=== PATIENT | male | born 1955 | race Caucasian/White ===

== ENCOUNTER 2018-06-26 13:52 | Observation (INO) | payer OTHER ==
[~2018-06-26] VITALS: Ht 172.7 cm; Wt 90.7 kg
[~2018-06-26 13:52] MED LIST: ASPI81CH PO; ATOR40TA PO; Aciphex20 MG PO; Calcium Ascorb500 MG; FENO160 PO; GABA300; HYDACE5 PO; HYDACE5325 PO; HYDMOR2 PO; LANS30EC; LEVFLO500 PO; MULVITA PO; NATTOKINASE; NATTOKINASE PO; NIAC500 PO; OXYACE7.5T; OXYC20ER; RABE20 PO; SERT100 PO; TAMS.4ER; TUMERERIC; TURMERIC500 M2 PO; VITAMIN B122500 MCG PO; VITAMIN D32000 UNI1 PO; VITAMIN D34000 UNIT PO; VITAMINS; XARELTO; ZOLOFT; [UNRECOGNIZED DRUG - REMARK] PO
[2018-07-01 17:18] LABS: Hematocrit 38.9 % (37.0-53.0); Hemoglobin 13.4 g/dL (13.5-17.5)
[2018-07-01] MEDS ORDERED: Percocet 5-3251 EACH PO (17:44)
== END 2018-07-01 18:15 | disposition home or self-care (01) ==
LOC: SURS 07-01 06:16 → PRE IP 07-01 06:16 → SURS 07-01 06:17 → PRE IP 07-01 07:30 → SURS 07-01 11:10
PROVIDERS: Podiatrist Foot & Ankle Surgery
PROC: 0L8W0ZZ Division of Left Foot Tendon, Open Approach (ICD-10-PCS; 2018-07-01)
PROC: 0SRG0JZ Replacement of Left Ankle Joint with Synthetic Substitute, Open Approach (ICD-10-PCS; principal; 2018-07-01 07:30)
DX: M19.072 Primary osteoarthritis, left ankle and foot (principal); M93.272 Osteochondritis dissecans, left ankle and joints of left foot; E78.00 Pure hypercholesterolemia, unspecified; G43.909 Migraine, unspecified, not intractable, without status migrainosus; N40.0 Benign prostatic hyperplasia without lower urinary tract symptoms; K58.9 Irritable bowel syndrome, unspecified; F32.9 Major depressive disorder, single episode, unspecified; K21.9 Gastro-esophageal reflux disease without esophagitis; Z86.718 Personal history of other venous thrombosis and embolism; Z91.041 Radiographic dye allergy status; Z88.5 Allergy status to narcotic agent; Z79.899 Other long term (current) drug therapy
CPT/HCPCS: 36415; 73600; 85014; 85018; 86850; 86900; 86901; 97116; 97161; C1776; G8978; G8979; G8980; J0171; J0690; J0735; J1100; J1885; J2250; J2405; J2795; J3010; J7120

== ENCOUNTER 2018-09-09 07:10 | Day surgery (SDC) | payer OTHER ==
[~2018-09-09] VITALS: Ht 175.3 cm; Wt 88.3 kg
[~2018-09-09 07:10] MED LIST changes: +Percocet 5-3251 EACH PO
[2018-09-09] MEDS ORDERED: FENOFIBRATE40 MG PO (07:44)
[2018-09-09] MEDS ORDERED: TAMS.4ER PO (07:45)
== END 2018-09-09 09:14 | disposition home or self-care (01) ==
LOC: ORSCSDS 07:10
PROVIDERS: Internal Medicine Gastroenterology
PROC: 0DBM8ZX Excision of Descending Colon, Via Natural or Artificial Opening Endoscopic, Diagnostic (ICD-10-PCS; principal; 2018-09-09 08:30)
DX: Z12.11 Encounter for screening for malignant neoplasm of colon (principal); D12.4 Benign neoplasm of descending colon; K57.30 Diverticulosis of large intestine without perforation or abscess without bleeding; K64.8 Other hemorrhoids; K58.9 Irritable bowel syndrome, unspecified; E78.00 Pure hypercholesterolemia, unspecified; K21.0 Gastro-esophageal reflux disease with esophagitis; I82.629 Acute embolism and thrombosis of deep veins of unspecified upper extremity; F32.9 Major depressive disorder, single episode, unspecified; Z79.899 Other long term (current) drug therapy
CPT/HCPCS: 88305; J0330; J1980; J2405; J7120

== ENCOUNTER 2019-04-25 21:14 | Emergency (ER) | payer MEDICARE ==
[~2019-04-25] VITALS: Ht 175.3 cm; Wt 87.1 kg
[~2019-04-25 21:14] MED LIST changes: +FENOFIBRATE40 MG PO; +TAMS.4ER PO
== END 2019-04-25 23:33 | disposition home or self-care (01) ==
LOC: ER 21:14
DX: S61.210A Laceration without foreign body of right index finger without damage to nail, initial encounter (principal); W45.8XXA Other foreign body or object entering through skin, initial encounter; Z88.5 Allergy status to narcotic agent; Z88.8 Allergy status to other drugs, medicaments and biological substances; Z79.899 Other long term (current) drug therapy
CPT/HCPCS: 12001; 90471; 90714; 99282-25

== ENCOUNTER 2020-04-06 12:16 | Emergency (ER) | payer MEDICARE ==
[~2020-04-06] VITALS: Ht 175.3 cm; Wt 86.2 kg
[2020-04-06 12:51] LABS: BASOPHILS ABSOLUTE AUTO 0.05 K/mm3 (0.00-0.23); BASOPHILS PERCENT AUTO 1 % (0-2); EOSINOPHILS ABSOLUTE AUTO 0.16 K/mm3 (0.00-0.68); EOSINOPHILS PERCENT AUTO 3 % (0-6); Hematocrit 43.4 % (37.0-53.0); Hemoglobin 15.1 g/dL (13.5-17.5); IMMATURE GRAN ABSOLUTE AUTO 0.01 K/mm3 (0.00-0.10); IMMATURE GRAN PERCENT AUTO 0 % (0-1); LYMPHOCYTES ABSOLUTE AUTO 1.96 K/mm3 (0.84-5.20); LYMPHOCYTES PERCENT AUTO 33 % (21-46); MONOCYTES ABSOLUTE AUTO 0.63 K/mm3 (0.16-1.47); MONOCYTES PERCENT AUTO 11 % (4-13); Mean Corpuscular HGB 32.6 pg (26.0-34.0); Mean Corpuscular HGB Conc 34.8 g/dL (31.5-36.5); Mean Corpuscular Volume 94 fL (80-100); Mean Platelet Volume 10.6 fL (9.1-12.4); NEUTROPHILS PERCENT AUTO 52 % (41-73); Platelet Count 172 K/mm3 (150-400); RDW Coefficient Variation 11.9 % (11.7-14.2); RDW Standard Deviation 40.9 fL (35.1-46.3); Red Blood Cell Count 4.63 M/mm3 (4.30-5.90); White Blood Cell Count 5.91 K/mm3 (4.00-11.30)
[2020-04-06 13:14] LABS: Alanine Aminotransfer (ALT/SGP 24 U/L (12-78); Albumin, Blood 3.8 g/dL (3.4-5.0); Albumin/Globulin Ratio 1.2 (0.8-1.8); Alk Phos 69 U/L (50-136); Anion Gap 5 mmol/L (6-16); Aspartate Aminotrans (AST/SGOT 17 U/L (12-37); Bilirubin, Total 0.5 mg/dL (0.1-1.0); Blood Urea Nitrogen 12 mg/dL (8-24); Bun/Creatinine Ratio 14.8 (12.0-20.0); CO2, Blood 26 mmol/L (21-32); Calcium, Blood 8.8 mg/dL (8.5-10.1); Chloride, Blood 108 mmol/L (98-108); Creatinine, Blood 0.81 mg/dL (0.60-1.20); Globulin, Blood 3.2 g/dL (2.2-4.0); Glomerular Filtration Rate >60 (60-); Glucose, Blood 95 mg/dL (70-99); Potassium, Blood 4.1 mmol/L (3.5-5.5); Sodium, Blood 139 mmol/L (136-145); Troponin I <0.015 ng/mL (0.000-0.040)
== END 2020-04-06 18:28 | disposition home or self-care (01) ==
LOC: ER 12:16
PROVIDERS: Physician Assistant
DX: R07.9 Chest pain, unspecified (principal); Z88.5 Allergy status to narcotic agent; Z91.09 Other allergy status, other than to drugs and biological substances; Z79.899 Other long term (current) drug therapy; E78.5 Hyperlipidemia, unspecified; J44.9 Chronic obstructive pulmonary disease, unspecified; Z86.718 Personal history of other venous thrombosis and embolism; F32.9 Major depressive disorder, single episode, unspecified; N40.0 Benign prostatic hyperplasia without lower urinary tract symptoms; Z87.891 Personal history of nicotine dependence
CPT/HCPCS: 36415; 71046; 80053; 84484; 85025; 93005; 93010; 99285-25

== ENCOUNTER 2021-01-15 15:42 | Inpatient (IN) | payer MEDICARE ==
[~2021-01-15] VITALS: Ht 177.8 cm; Wt 82.9 kg
--- NOTE | 2021-01-15 19:20 | NUR ---
direct admit, for diverticulitus, a+o, no skin issues noted on admit, at side and assisting during admit, call light in reach, medicated as prescribed, call light in reach, bed in low position, abx infusing with no s/sx of infection or infiltration, bed in low position, bsr shared with noc nurse and pt
--- NOTE | 2021-01-15 19:30 | NUR ---
ASSUMPTION OF CARE. AOX3, REPORTS PAIN IN LOWER QUADRANTS TO SIDES, RISING AT 6/10 AT THIS TIME. MILD NAUSEA. STATES THE FENTANYL ONLY LAST 30 MINUTES THEN STARTS TO WEAR OFF. DISCUSSED SPEAKING TO DOCTOR AND GETTING HIS PAIN MEDICATION CHANGED. ABLE TO USE BATHROOM INDEPENDENTLY. NO N/T. IVF INFUSING WELL. ICE CHIPS AT BED SIDE. WILL ALSO GIVE HEATING PAD FOR PAIN. CALL LIGHT IS IN REACH. NO OTHER NEEDS NOTED AT THIS TIME.
[2021-01-16 05:14] LABS: BASOPHILS ABSOLUTE AUTO 0.02 K/mm3 (0.00-0.23); BASOPHILS PERCENT AUTO 0 % (0-2); EOSINOPHILS ABSOLUTE AUTO 0.17 K/mm3 (0.00-0.68); EOSINOPHILS PERCENT AUTO 2 % (0-6); Hematocrit 40.5 % (37.0-53.0); Hemoglobin 14.1 g/dL (13.5-17.5); IMMATURE GRAN ABSOLUTE AUTO 0.02 K/mm3 (0.00-0.10); IMMATURE GRAN PERCENT AUTO 0 % (0-1); LYMPHOCYTES ABSOLUTE AUTO 1.78 K/mm3 (0.84-5.20); LYMPHOCYTES PERCENT AUTO 24 % (21-46); MONOCYTES ABSOLUTE AUTO 0.82 K/mm3 (0.16-1.47); MONOCYTES PERCENT AUTO 11 % (4-13); Mean Corpuscular HGB Conc 34.8 g/dL (31.5-36.5); Mean Corpuscular Volume 92 fL (80-100); Mean Platelet Volume 10.4 fL (9.1-12.4); NEUTROPHILS ABSOLUTE AUTO 4.59 K/mm3 (1.96-9.15); NEUTROPHILS PERCENT AUTO 62 % (41-73); Platelet Count 144 K/mm3 (150-400); RDW Coefficient Variation 11.9 % (11.7-14.2); RDW Standard Deviation 40.4 fL (35.1-46.3); Red Blood Cell Count 4.41 M/mm3 (4.30-5.90)
--- NOTE | 2021-01-16 05:25 | NUR ---
SHIFT SUMMARY: AOX3, INDEPENDENT IN THE ROOM. ABDOMINAL PAIN ACROSS LOWER QUADRANTS, CRAMPING. ABDOMIN SLIGHTLY DISTENDED, TENDER TO PALPITATIONS, MILD NAUSEA. PAIN 6/10 ON AVERAGE. FENTANYL WAS ONLY LASTING 30 MINUTES THEREFORE, HOSPITALIST WAS CALLED AND MED CHANGED TO DILUDID. 2 DOSAGES GIVEN THIS SHIFT, NO REACTION. ONLY 0.5MG GIVEN AT A TIME. TOLERATING ICE CHIPS AND SIPS OF WATER. IVF INFUSING, ANTIBOTIC TX GIVEN. VS WNL, AFEBRILE. PLAN: CONTINUE ANTIBOTIC TX AND SYMPTOM MANAGMENT. CALL LIGHT REMAINS IN REACH.
[2021-01-16 05:46] LABS: Alanine Aminotransfer (ALT/SGP 20 U/L (12-78); Albumin, Blood 3.3 g/dL (3.4-5.0); Alk Phos 66 U/L (50-136); Anion Gap 7 mmol/L (6-16); Aspartate Aminotrans (AST/SGOT 8 U/L (12-37); Bilirubin, Total 0.8 mg/dL (0.1-1.0); Blood Urea Nitrogen 12 mg/dL (8-24); Bun/Creatinine Ratio 13.7 (12.0-20.0); CO2, Blood 26 mmol/L (21-32); Calcium, Blood 8.6 mg/dL (8.5-10.1); Chloride, Blood 105 mmol/L (98-108); Creatinine, Blood 0.88 mg/dL (0.60-1.20); Globulin, Blood 3.3 g/dL (2.2-4.0); Glomerular Filtration Rate >60 (60-); Glucose, Blood 106 mg/dL (70-99); Potassium, Blood 3.7 mmol/L (3.5-5.5); Sodium, Blood 138 mmol/L (136-145); Total Protein, Blood 6.6 g/dL (6.4-8.2)
--- NOTE | 2021-01-16 17:27 | NUR ---
ALERT. ORIENTED. MEDICATED FOR PAIN WITH GOOD RESULTS. STEADY GAIT IN ROOM. INDEPENDENT. STS GETS PAIN DURING MOVEMENT. STS IS FEELING BETTER TODAY AND HAS BEEN STARTED ON CLEAR LIQUIDS. UNLABORED REPSIRATIONS. TM
--- NOTE | 2021-01-16 20:01 | NUR ---
ASSUMPTION OF CARE. AOX3, INDEPENDENT. NO NAUSEA TODAY. PAIN MORE TOLERABLE AND LESS OFTEN. USING HEATING PAD FOR PAIN MANAGEMENT. WILL LIKE PAIN MEDS BEFORE BEDTIME, WILL PULL WITH NIGHT MEDS. TOLERATING CLEAR LIQUID DIET, STATES "IM TAKING IT SLOW". DENIES ANY NEEDS AT THIS TIME. VS WNL. CALL LIGHT IS IN REACH.
--- NOTE | 2021-01-16 22:00 | NUR ---
Per Dr Sharif, ETA discharge Friday to home if continues to improve.
--- NOTE | 2021-01-17 05:11 | NUR ---
SHIFT SUMMARY: AOX3, INDEPENDENT IN ROOM. MINIMAL PAIN, MEDICATED X1. NO NAUSEA. TOLERATING DIET WELL. PASSING FLATUS WITHOUT DISCOMFORT. USING HEAT FOR ALTERNATIVE PAIN CONTROL. SLEPT WELL T/O NIGHT. VS WNL, AFEBRILE. NO COMPLAINTS OR CHANGES TO NOTE. PLAN: POSSIBLE DC HOME TODAY. CALL LIGHT IS IN REACH.
[2021-01-17] MEDS ORDERED: ACET325 PO (15:49)
[2021-01-17] MEDS ORDERED: FLUTICASONE-SA1 EAC1 INH (15:50)
[2021-01-17] MEDS ORDERED: ALBU90OI INH (15:50)
[2021-01-17] MEDS ORDERED: ATOR20 PO (15:50)
[2021-01-17] MEDS ORDERED: ONDA4ODT MM (15:51)
[2021-01-17] MEDS ORDERED: CLIN300 PO (15:51)
[2021-01-17] MEDS ORDERED: CIPR500 PO (15:51)
--- NOTE | 2021-01-17 17:12 | NUR ---
REVIEW D'C INSTRUCTIONS. AWARE TO HOSPITAL RECRUITER [facility]S AT [facility] WILL MAKE A FOLLOW UP APPT FOR HIM. DISCUSS REASONS TO CALL PCP OR RETURN TO E.R. [facility]BAL[facility] UNDERSTANDING. IN W/C WITH FRANCHISE SALES REPRESENTATIVE TO POV WITH DRIVING
== END 2021-01-17 17:15 | disposition home or self-care (01) | DRG 392 ==
LOC: MEDS 15:42
PROVIDERS: ADMIT Internal Medicine
DX: K57.20 Diverticulitis of large intestine with perforation and abscess without bleeding (principal); I25.10 Atherosclerotic heart disease of native coronary artery without angina pectoris; E78.5 Hyperlipidemia, unspecified; G89.4 Chronic pain syndrome; Z79.899 Other long term (current) drug therapy
CPT/HCPCS: 36415; 74176; 80053; 85025; 94640; 94760; A9270; J0744; J1170; J1650; J2405; J3010; J7042